=== PATIENT | male | born 1995 | race Caucasian/White ===

== ENCOUNTER 2020-06-28 00:13 | Emergency (ER) | payer MEDICAID, SELFPAY ==
[~2020-06-28] VITALS: Ht 177.8 cm; Wt 147.0 kg
[2020-06-28 00:20] VITALS: BP_SYST 165
--- NOTE | 2020-06-28 00:20 | NUR ---
Patient to ER bed 2 to gown for evaluation. Side rails up. Report given to BABAR PHAN.
--- NOTE | 2020-06-28 00:21 | NUR ---
Came in ER ambulatory this 24 year old male from home, AAOX4, breathing spontaneously at room air, not in distress, with chief complaints of left groin pain 10/10, facial grimaced noted, started yesterday. medically/ surgically free. no known allergy as claimed. Safey measures in place and continue monitor.
--- NOTE | 2020-06-28 00:43 | NUR ---
# 20 gauge angiocath placed to forearm. Use of asceptic technique. Opsite placed over site. Blood return noted. Blood for lab drawn from site. Flushed with 10 cc of normal saline. No evidence of infiltration noted. Patient tolerated well.
--- NOTE | 2020-06-28 00:50 | NUR ---
Seen and examined by Dr. Gray, ER Attending
[2020-06-28] MEDS ORDERED: NACL 0.9% 1,000 ML IV ONE (01:00)
[2020-06-28] MEDS ORDERED: ONDANSETRON HCL 4 MG/2 ML VIAL IVP ONE (01:00)
[2020-06-28] MEDS ORDERED: MORPHINE 4 MG/ML INJ. SYRINGE IVP ONE (01:00)
[2020-06-28 01:02] LABS: BASOPHILS # (AUTO) 0.1 K/uL (0.0-0.2); BASOPHILS % (AUTO) 0.7 % (0.0-2.0); EOSINOPHILS # (AUTO) 0.6 K/uL (0.0-0.4); HEMATOCRIT 39.3 % (36-54); HEMOGLOBIN 13.1 g/dL (14.0-18.0); LYMPHOCYTES # (AUTO) 3.5 K/uL (1.0-5.5); LYMPHOCYTES % (AUTO) 23.5 % (20.5-51.5); MEAN CORPUSCULAR HEMOGLOBIN 29 pg (27-31); MEAN CORPUSCULAR HGB CONC 33 % (32-36); MEAN CORPUSCULAR VOLUME 86 fL (79.0-98.0); MONOCYTES % (AUTO) 6.5 % (1.7-9.3); NEUTROPHILS # (AUTO) 9.8 K/uL (1.8-7.7); NEUTROPHILS % (AUTO) 65.3 % (40.0-70.0); PLATELET COUNT (AUTO) 295 K/uL (130-430); RED BLOOD CELL COUNT(AUTO) 4.59 MIL/uL (4.2-6.2); RED CELL DISTRIBUTION WIDTH 13.9 % (9.0-15.0); WHITE BLOOD COUNT (AUTO) 14.9 K/uL (4.8-10.8)
[2020-06-28 01:15] LABS: CREATININE 0.92 mg/dL (0.55-1.30); POTASSIUM 4.1 mmol/L (3.5-5.1)
--- NOTE | 2020-06-28 01:19 | NUR ---
To CT Scan department per wheelchair accompanied by central processing technician in stable condition
[2020-06-28 01:21] LABS: ALBUMIN 3.5 g/dL (3.4-4.8); TOTAL BILIRUBIN 0.3 mg/dL (0.0-1.0)
[2020-06-28 01:58] LABS: BILIRUBIN,URINE NEGATIVE (NEGATIVE); BLOOD, URINE 3+ (NEGATIVE); CLARITY/URINE CLEAR (CLEAR); COLOR,URINE YELLOW (YELLOW); GLUCOSE,URINE NEGATIVE (NEGATIVE); KETONES,URINE NEGATIVE (NEGATIVE); LEUKOCYTE ESTERASE ,URINE NEGATIVE (NEGATIVE); NITRITE, URINE NEGATIVE (NEGATIVE); PH,URINE 6.5 (5.0-8.0); PROTEIN URINE NEGATIVE (NEGATIVE); UROBILINOGEN,URINE 0.2 (0.2-1.0)
[2020-06-28] MEDS ORDERED: KETOROLAC TROMETHAMINE 15 MG VIAL ONE (01:58)
[2020-06-28] MEDS ORDERED: KETOROLAC TROMETHAMINE 15 MG VIAL IVP ONE (02:00)
--- NOTE | 2020-06-28 02:01 | NUR ---
Still with moderate left groin pain radiating to the flank, 7/10 and facial grimaced noted. Toradol 15mg IV once as ordered given, health teaching provided, verbalized understanding
[2020-06-28 02:09] LABS: BACTERIA,URINE FEW /HPF (None Seen); RBC,URINE 50-80 /HPF (0-3); WBC,URINE 0-3 /HPF (0-3)
--- NOTE | 2020-06-28 02:55 | NUR ---
landscape management technician at bedside for renal ultrasound.
[2020-06-28] MEDS ORDERED: fentaNYL CITRATE/PF 100 MCG/2 ML AMP IVP ONE (03:45)
[2020-06-28] MEDS ORDERED: fentaNYL CITRATE/PF 100 MCG/2 ML AMP ONE (03:46)
--- NOTE | 2020-06-28 03:50 | NUR ---
patient medicated as ordered. will observe for any adverse reaction. bed to low position sr up. continue to monitor. iv site patent and intact.
--- NOTE | 2020-06-28 03:55 | NUR ---
Swabs COVID-19 and send to lab.
[2020-06-28] MEDS ORDERED: HYDR-4272 PO (03:58)
[2020-06-28] MEDS ORDERED: TAMS-11 PO (04:04)
[2020-06-28] MEDS ORDERED: ONDA-8 TL (04:04)
[2020-06-28] MEDS ORDERED: IBUP-1971 PO (04:04)
[2020-06-28 04:20] VITALS: BP_SYST 115
--- NOTE | 2020-06-28 04:20 | NUR ---
Patient given written and verbal discharge instructions and verbalizes understanding. ER MD discussed with patient the results and treatment provided. Patient in stable condition. ID arm band removed. IV catheter removed intact and dressing applied, no active bleeding. Rx of zofran, norco, ibuprofen, and flomax given. Patient educated on pain management and to follow up with PMD. Pain Scale 2/10. Opportunity for questions provided and answered. Medication side effect fact sheet provided.
== END 2020-06-28 04:20 | disposition home or self-care (01) ==
LOC: SED 00:13
DX: N23 Unspecified renal colic (principal); F17.210 Nicotine dependence, cigarettes, uncomplicated; Z71.6 Tobacco abuse counseling; Z20.822 Contact with and (suspected) exposure to COVID-19
CPT/HCPCS: 36415; 74176; 76376; 76770; 80053; 81000; 83690; 85025; 87426; 96361; 96374; 96375; 99285; J1885; J2270; J2405; J3010; J7030

== ENCOUNTER 2023-02-05 22:20 | Emergency (ER) | payer MEDICAID ==
[~2023-02-05] VITALS: Ht 177.8 cm; Wt 157.9 kg
[~2023-02-05 22:20] MED LIST: HYDR-4272 PO; IBUP-1971 PO; ONDA-8 TL; TAMS-11 PO
[2023-02-05 22:32] VITALS: BP_SYST 134; PULSE 90; RESP 16; TEMP 97; O2SAT 95
[2023-02-05] MEDS ORDERED: activated charcoaL 50 GM/240 ML ORAL.SUSP PO ONE (22:45)
[2023-02-06 00:03] LABS: BASOPHILS # (AUTO) 0.1 K/uL (0.0-0.2); BASOPHILS % (AUTO) 0.6 % (0.0-2.0); EOSINOPHILS # (AUTO) 0.3 K/uL (0.0-0.4); EOSINOPHILS % (AUTO) 2.6 % (0.0-4.0); HEMATOCRIT 45.6 % (36-54); HEMOGLOBIN 15.2 g/dL (14.0-18.0); LYMPHOCYTES # (AUTO) 2.4 K/uL (1.0-5.5); LYMPHOCYTES % (AUTO) 18.2 % (20.5-51.5); MEAN CORPUSCULAR HEMOGLOBIN 28 pg (27-31); MEAN CORPUSCULAR HGB CONC 33 % (32-36); MEAN CORPUSCULAR VOLUME 86 fL (79.0-98.0); MONOCYTES # (AUTO) 0.9 K/uL (0.0-1.0); MONOCYTES % (AUTO) 6.6 % (1.7-9.3); NEUTROPHILS # (AUTO) 9.6 K/uL (1.8-7.7); PLATELET COUNT (AUTO) 378 K/uL (130-430); RED BLOOD CELL COUNT(AUTO) 5.34 MIL/uL (4.2-6.2); RED CELL DISTRIBUTION WIDTH 13.8 % (9.0-15.0); WHITE BLOOD COUNT (AUTO) 13.3 K/uL (4.8-10.8)
[2023-02-06 00:40] LABS: ANION GAP 10 (5-15); CALCIUM 9.9 mg/dL (8.4-11.0); CARBON DIOXIDE 27 mmol/L (23-29); CHLORIDE 101 mmol/L (98-107); GFR AFRICAN AMERICAN 129 mL/min (>90); GLUCOSE 106 mg/dL (74-106); POTASSIUM 4.1 mmol/L (3.5-5.1); SODIUM SERUM 138 mmol/L (136-145); UREA NITROGEN, BLOOD 18 mg/dL (8-21)
[2023-02-06 00:44] LABS: ALANINE AMINOTRANSFERASE 38 U/L (12-78); ALBUMIN 3.8 g/dL (3.4-4.8); ASPARTATE AMINOTRANSFERASE 11 U/L (10-37); SALICYLATE 10 mg/dL (3-30); TOTAL BILIRUBIN 0.2 mg/dL (0.0-1.0); TOTAL PROTEIN, SERUM 8.5 g/dL (6.4-8.3)
[2023-02-06 00:48] LABS: GFR NON AFRICAN-AMERICAN 107 mL/min (>90)
[2023-02-06 00:49] LABS: ACETAMINOPHEN < 1 ug/mL (1-30); ALCOHOL, BLOOD < 3 mg/dL (<10)
[2023-02-06] MEDS ORDERED: MAGNESIUM SULFATE 1 GM/2 ML VIAL IVP ONE (01:30)
[2023-02-06] MEDS ORDERED: NACL 0.9% 1,000 ML IV ONE ×2 (01:30→02:45)
[2023-02-06 03:57] LABS: ANION GAP 10 (5-15); CALCIUM 9.1 mg/dL (8.4-11.0); CARBON DIOXIDE 22 mmol/L (23-29); CHLORIDE 100 mmol/L (98-107); CREATININE 0.98 mg/dL (0.55-1.30); GFR AFRICAN AMERICAN 117 mL/min (>90); GLUCOSE 113 mg/dL (74-106); POTASSIUM 3.9 mmol/L (3.5-5.1); SODIUM SERUM 132 mmol/L (136-145); UREA NITROGEN, BLOOD 18 mg/dL (8-21)
[2023-02-06 03:59] LABS: GFR NON AFRICAN-AMERICAN 97 mL/min (>90)
[2023-02-06 04:01] LABS: ALANINE AMINOTRANSFERASE 33 U/L (12-78); ALBUMIN 3.5 g/dL (3.4-4.8); ASPARTATE AMINOTRANSFERASE 8 U/L (10-37); SALICYLATE 4 mg/dL (3-30); TOTAL BILIRUBIN 0.2 mg/dL (0.0-1.0); TOTAL PROTEIN, SERUM 7.8 g/dL (6.4-8.3)
[2023-02-06 04:02] LABS: ACETAMINOPHEN < 1 ug/mL (1-30)
[2023-02-06 09:35] LABS: BARBITURATE, URINE NEGATIVE (NEG <=200); BENZODIAZEPINE, URINE NEGATIVE (NEG <=150); COCAINE, URINE POSITIVE (NEG <=150); METHAMPHETAMINES SCREEN,URINE NEGATIVE (NEG <=500); URINE AMPHETAMINE NEGATIVE (NEG <=500); URINE METHADONE NEGATIVE (NEG <=200)
[2023-02-06 09:36] LABS: CANNABINOID, URINE POSITIVE (NEG <=50); OPIATE, URINE NEGATIVE (NEG <=100); PHENCYCLIDINE SCREEN,URINE NEGATIVE (NEG <=25); UR TRICYCLIC ANTIDEPRESSANTS NEGATIVE (NEG <=300); URINE OXYCODONE SCREEN NEGATIVE (NEG <=100); URINE PROPOXYPHENE SCREEN NEGATIVE (NEG <=300)
[2023-02-06 14:46] VITALS: O2SAT 99
[2023-02-06 15:47] VITALS: BP_SYST 137; PULSE 80; RESP 19; TEMP 98.6
== END 2023-02-06 15:00 ==
LOC: SED 22:20
DX: T43.222A Poisoning by selective serotonin reuptake inhibitors, intentional self-harm, initial encounter (principal); T43.225A Adverse effect of selective serotonin reuptake inhibitors, initial encounter; R00.0 Tachycardia, unspecified; Z79.899 Other long term (current) drug therapy; Y92.89 Other specified places as the place of occurrence of the external cause
CPT/HCPCS: 99291; 80307; 82962; 83735; 85025; 36415; 96360; 96361; 93005; 80053; J7030; G0480; G0481; G0482